=== PATIENT | male | born 1960 | race Caucasian/White ===

== ENCOUNTER 2016-10-25 16:59 | Observation (INO) ==
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
[2016-10-25] MEDS ORDERED: FLUMAZENIL 1 MG/10 ML VIAL IV PRN (18:50)
[2016-10-25] MEDS ORDERED: ACETAMINOPHEN 325 MG TABLET PO PRN (18:55)
[2016-10-25 19:28] LABS: ABG Base Excess -3.2 MMOL/L (-2.5-2.5); ABG HCO3 21.8 MMOL/L (20-26); ABG Oxygen Saturation 97.7 % (95-100); ABG PCO2 48.7 MM HG (35-48); ABG PH 7.301 (7.35-7.45); ABG PO2 99.1 MM HG (80-95); ABG TCO2 20.5 MMOL/L (23-27); Allen Test Positive
[2016-10-25] MEDS ORDERED: SIMVASTATIN 40 MG TABLET PO SCH (21:00)
[2016-10-25 21:38] LABS: Basophils % 0.2 % (0.0-0.8); Eosinophils % 0.4 % (0.00-10.9); Hematocrit 45.3 VOL% (42.0-52.0); Hemoglobin 15.2 GM/DL (14.0-18.0); Immature Granulocytes % 0.4 %; Immature Granulocytes Absolute 0.03 #; Lymphocytes # 1.9 10*3/uL (1.4-4.0); Lymphocytes % 23.4 % (21.2-54.2); Mean Corpuscular HGB Conc 33.6 GM/DL (32-36); Mean Corpuscular Hemoglobin 33 PG (27-34); Mean Corpuscular Volume 97.4 FL (87-102); Mean Platelet Volume 10.9 FL (9.6-12.0); Monocytes # 0.8 10*3/uL (0.11-0.8); Monocytes % 9.9 % (1.7-12.7); Neutrophils # 5.3 10*3/uL (1.4-7.4); Neutrophils % 65.7 % (38.7-73.9); Platelet Count 116 T/CUMM (130-400); Red Blood Count 4.65 MC/CUMM (3.8-5.5); Red Cell Distribution Width 14.9 % (9.3-17.3); White Blood Count 8.1 T/CUMM (4-12)
[2016-10-25 22:01] LABS: Magnesium 1.7 MG/DL (1.8-2.4)
[2016-10-25 23:46] LABS: Barbiturates Screen,Urine Negative (Negative); Benzodiazepines Screen,Urine Positive (Negative); Cannabinoid Screen,Urine Negative (Negative); Opiate Screen,Urine Positive (Negative); Phencyclidine Screen,Urine Negative (Negative)
[2016-10-26 05:02] VITALS: BP 135/69
--- NOTE | 2016-10-26 05:40 | Event Note ---
Notified by staff nurse that patient will not leave AMA. Patient was admitted with the Xanax and Percocet overdose. He has been hemodynamically stable awake and alert. I tried to convince him to stay but he said he cannot stay he will go see his doctor. He denied being suicidal. He is waiting for his to come pick him up.
[2016-10-26] MEDS ORDERED: ALLOPURINOL 300 MG TABLET PO SCH (09:00)
[2016-10-26] MEDS ORDERED: LISINOPRIL 20 MG TABLET PO SCH (09:00)
== END 2016-10-26 06:35 | disposition left against medical advice (07) ==
LOC: EDUNIT# → EDBD → N.EDINP 16:59 → N.ED 16:59 → N.ICU 19:05
PROVIDERS: ADMIT Internal Medicine; ATTEND Internal Medicine